=== PATIENT | male | born 1965 | race Caucasian/White ===

== ENCOUNTER 2018-04-14 10:23 | Outpatient (CLI) | payer BC ==
--- NOTE | 2018-04-17 11:36 | DEXA Report ---
Reason: OSTEOPOROSIS Procedure Date: 04/14/2018 Accession Number: [id number] / [id number] Procedure: DEX - Dexa Spine and/or Hip CPT Code: FULL RESULT: EXAM: Dexa Spine and/or Hip DATE: 04/14/2018 11:07 AM CLINICAL HISTORY: OSTEOPOROSIS. Use of methotrexate and prednisone. Male patient. TECHNIQUE: Dual energy x-ray absorptiometry (DXA) was performed on a Lemko System. Regions measured are the AP Spine, femoral neck, and if needed forearm. COMPARISON: None. In accordance with the International Society for Clinical Densitometry (ISCD) guidelines, data from previous exams may be reanalyzed using current recommendations and techniques. This is done to allow a more accurate basis for comparison with the current study. FINDINGS: The data for the lumbar spine is as follows: BMD (g/cm/cm) T-SCORE Z-SCORE REGION L1 1.044 -1.0 -0.5 L2 1.093 -1.2 -0.8 L3 1.281 0.3 0.8 L4 1.083 -1.3 -0.9 TOTAL 1.126 -0.8 -0.3 NOTE: All evaluable vertebrae are used for classification The data for the hip is as follows: BMD (g/cm/cm) T-SCORE Z-SCORE REGION Neck 0.922 -1.1 -0.3 TOTAL 0.996 -0.7 -0.2 NOTE: The femoral neck or total proximal femur, whichever is lowest, is used for classification. IMPRESSION: THE WHO CLASSIFICATION BASED ON THE INTERNATIONAL REFERENCE STANDARD IS OSTEOPENIA. THE FRACTURE RISK IS INCREASED. RECOMMENDATION: Patients with diagnosis of osteoporosis or osteopenia should have regular bone mineral density assessment. For those eligible for Medicare, routine testing is allowed once every 2 years. Testing frequency can be increased for patients who have rapidly progressing disease or for those who are receiving medical therapy to restore bone mass. COMMENT: World Health Organization (WHO) definitions for osteoporosis and osteopenia: NORMAL BMD: T-score at -1.0 or higher, fracture risk is low OSTEOPENIA BMD: T-score between -1.0 and -2.5, fracture risk is increased. OSTEOPOROSIS BMD: T-score at -2.5 or lower, fracture risk is high. National Osteoporosis Foundation recommends: 1. Obtain adequate dietary calcium (at least 1200 mg per day) and vitamin D (400-800 international units per day). 2. Participate, as appropriate, in regular weightbearing and muscle-strengthening exercise. 3. Avoid tobacco use and reduce alcohol and caffeine intake. 4. For more detailed information see the website at www.NOF.org.
== END 2018-04-14 10:24 | disposition home or self-care (01) ==
LOC: DI 10:23
PROVIDERS: ATTEND Internal Medicine Rheumatology
DX: M85.89 Other specified disorders of bone density and structure, multiple sites (principal)
CPT/HCPCS: 77080

== ENCOUNTER 2018-04-26 08:00 | Outpatient (CLI) | payer BC ==
[2018-04-26 19:14] LABS: BASOPHILS % (AUTO) 0.1 %; EOSINOPHILS % (AUTO) 0.1 %; HGB - HEMOGLOBIN 16.1 g/dL (14.0-18.0); LYMPHOCYTES # (AUTO) 1.1 10^3/uL (1.5-3.5); LYMPHOCYTES % (AUTO) 7.7 %; MEAN CORPUSCULAR HEMOGLOBIN 34.4 pg (27.0-31.0); MEAN CORPUSCULAR HGB CONC 33.6 g/dL (32.0-36.0); MEAN CORPUSCULAR VOLUME 102.3 fL (80.0-94.0); MEAN PLATELET VOLUME 8.3 fL (7.4-11.4); MONOCYTES # (AUTO) 0.3 10^3/uL (0.0-1.0); MONOCYTES % (AUTO) 2.3 %; NEUTROPHILS # (AUTO) 12.7 10^3/uL (1.5-6.6); NEUTROPHILS % (AUTO) 89.8 %; PLT - PLATELET COUNT 243 10^3/uL (130-450); RED BLOOD COUNT 4.68 10^6/uL (4.70-6.10); RED CELL DISTRIBUTION WIDTH 12.9 % (12.0-15.0); WHITE BLOOD COUNT 14.1 x10^3/uL (4.8-10.8)
[2018-04-26 19:27] LABS: ALBUMIN/GLOBULIN RATIO 1.3 (1.0-2.2); BILIRUBIN,TOTAL 0.8 mg/dL (0.2-1.0); CALCIUM 9.8 mg/dL (8.5-10.3)
== END 2018-04-26 23:59 ==
LOC: LAB.N 08:00
PROVIDERS: ATTEND Internal Medicine Rheumatology
DX: I77.6 Arteritis, unspecified (principal)
CPT/HCPCS: 36415; 80053; 85025; 86160

== ENCOUNTER 2018-09-01 08:00 | Outpatient (CLI) | payer BC ==
[2018-09-01 12:27] LABS: BILIRUBIN,URINE NEGATIVE (NEGATIVE); GLUCOSE, URINE (UA) NEGATIVE (NEGATIVE); KETONES,URINE (UA) NEGATIVE (NEGATIVE); LEUKOCYTE ESTERASE, URINE NEGATIVE (NEGATIVE); NITRITE,URINE NEGATIVE (NEGATIVE); OCCULT BLOOD,URINE NEGATIVE (NEGATIVE); PROTEIN,URINE NEGATIVE (NEGATIVE); UROBILINOGEN,URINE 0.2 (NORMAL) E.U./dL (NORMAL)
[2018-09-01 12:28] LABS: CLARITY,URINE CLEAR (CLEAR)
[2018-09-01 12:39] LABS: BASOPHILS # (AUTO) 0.1 10^3/uL (0.0-0.1); BASOPHILS % (AUTO) 0.6 %; EOSINOPHILS # (AUTO) 0.2 10^3/uL (0.0-0.7); EOSINOPHILS % (AUTO) 1.4 %; LYMPHOCYTES # (AUTO) 3.2 10^3/uL (1.5-3.5); LYMPHOCYTES % (AUTO) 26.2 %; MEAN CORPUSCULAR HEMOGLOBIN 34.1 pg (27.0-31.0); MEAN CORPUSCULAR HGB CONC 34.6 g/dL (32.0-36.0); MEAN CORPUSCULAR VOLUME 98.4 fL (80.0-94.0); MEAN PLATELET VOLUME 8.2 fL (7.4-11.4); MONOCYTES # (AUTO) 0.7 10^3/uL (0.0-1.0); MONOCYTES % (AUTO) 5.5 %; NEUTROPHILS # (AUTO) 8.1 10^3/uL (1.5-6.6); NEUTROPHILS % (AUTO) 66.3 %; PLT - PLATELET COUNT 251 10^3/uL (130-450); RED BLOOD COUNT 4.39 10^6/uL (4.70-6.10); RED CELL DISTRIBUTION WIDTH 13.2 % (12.0-15.0); WHITE BLOOD COUNT 12.2 x10^3/uL (4.8-10.8)
[2018-09-01 12:48] LABS: ALBUMIN/GLOBULIN RATIO 1.4 (1.0-2.2); ALKALINE PHOSPHATASE 42 IU/L (42-121); ALT ALANINE AMINOTRANSFERASE 13 IU/L (10-60); AST ASPARTATE AMINOTRANSFERASE 14 IU/L (10-42); BILIRUBIN,TOTAL 0.7 mg/dL (0.2-1.0); BUN - BLOOD UREA NITROGEN 9 mg/dL (6-20); CALCIUM 9.5 mg/dL (8.5-10.3); CARBON DIOXIDE - CO2 28 mmol/L (21-32); CHLORIDE 102 mmol/L (101-111); CREATININE 0.8 mg/dL (0.6-1.2); GFR - MDRD 101 (>89); GLUCOSE 93 mg/dL (70-100); SODIUM 139 mmol/L (135-145); TOTAL PROTEIN 6.8 g/dL (6.7-8.2)
[2018-09-01 12:50] LABS: BACTERIA,URINE Rare /HPF (None Seen); RBC,URINE 0-5 /HPF (0-5); SQUAMOUS EPITHELIAL CELL,UR NONE SEEN (<= Few)
[2018-09-01 13:05] LABS: CRP - C-REACTIVE PROTEIN < 1.0 mg/dL (0-1.0)
[2018-09-03 12:21] LABS: COMPLEMENT COMPONENT C3C 96 mg/dL (82-185); COMPLEMENT COMPONENT C4C 15 mg/dL (15-53)
== END 2018-09-01 23:59 | disposition home or self-care (01) ==
LOC: LAB.WCP 08:00
PROVIDERS: ATTEND Internal Medicine Rheumatology
DX: I77.6 Arteritis, unspecified (principal)
CPT/HCPCS: 36415; 80053; 81001; 85025; 85651; 86140; 86160

== ENCOUNTER 2018-12-29 08:00 | Outpatient (CLI) | payer BC ==
[2018-12-29 18:54] LABS: BASOPHILS % (AUTO) 0.3 %; EOSINOPHILS % (AUTO) 0.2 %; HGB - HEMOGLOBIN 15.1 g/dL (14.0-18.0); LYMPHOCYTES # (AUTO) 1.4 10^3/uL (1.5-3.5); LYMPHOCYTES % (AUTO) 11.4 %; MEAN CORPUSCULAR HEMOGLOBIN 32.8 pg (27.0-31.0); MEAN CORPUSCULAR HGB CONC 32.7 g/dL (32.0-36.0); MEAN CORPUSCULAR VOLUME 100.2 fL (80.0-94.0); MEAN PLATELET VOLUME 10.2 fL (7.4-11.4); MONOCYTES # (AUTO) 0.5 10^3/uL (0.0-1.0); MONOCYTES % (AUTO) 3.9 %; NEUTROPHILS # (AUTO) 10.2 10^3/uL (1.5-6.6); NEUTROPHILS % (AUTO) 83.8 %; PLT - PLATELET COUNT 251 10^3/uL (130-450); RED BLOOD COUNT 4.61 10^6/uL (4.70-6.10); RED CELL DISTRIBUTION WIDTH 12.4 % (12.0-15.0); WHITE BLOOD COUNT 12.1 x10^3/uL (4.8-10.8)
[2018-12-29 19:21] LABS: ALBUMIN/GLOBULIN RATIO 1.5 (1.0-2.2); BILIRUBIN,TOTAL 0.9 mg/dL (0.2-1.0); CALCIUM 9.6 mg/dL (8.5-10.3); TOTAL PROTEIN 6.7 g/dL (6.7-8.2)
== END 2018-12-29 23:59 | disposition home or self-care (01) ==
LOC: LAB.WCP 08:00
PROVIDERS: ATTEND Internal Medicine Rheumatology
DX: I77.6 Arteritis, unspecified (principal)
CPT/HCPCS: 36415; 80053; 85025; 85651

== ENCOUNTER 2020-07-26 18:26 | Emergency (ER) | payer BC ==
--- OUTSIDE RECORDS SUMMARY | 2020-07-26 19:03 | EXTERNAL MEDICAL SUMMARY RPT | Continuity of Care Document ---
:1965 Demographics Phone Unavailable Preferred Language Unknown Marital Status Unknown Denominational Affiliation Unknown Race Unknown Ethnic Group Unknown Author Organization [facility] Address [address] [place] [address] Phone Social History date description facility [id number]
--- NOTE | 2020-07-26 20:25 | ED Physician Documentation ---
PD HPI LOWER EXT INJURY - Stated complaint Stated Complaint: LT LEG SWELL - Chief complaint Chief Complaint: Ext Problem - History obtained from History obtained from: Patient - Additional information Additional information: 55-year-old gentleman with history of autoimmune vasculitis has been increasing his activity lately and over the last few days has noticed left calf pain and swelling. Is actually better today than it was yesterday. Reportedly was seen at the walk-in clinic yesterday and had a high D-dimer and was referred here for ultrasound. No chest pain or trouble breathing. Review of Systems Constitutional: denies: Fever, Chills Eyes: reports: Reviewed and negative Ears: reports: Reviewed and negative Nose: reports: Reviewed and negative PD PAST MEDICAL HISTORY - Allergies Allergies/Adverse Reactions: Allergies Allergy/AdvReac Type Severity Reaction Status Date / Time acetaminophen [From Vicodin] Allergy Headache Verified 07/26/20 18:49 azithromycin [From Zithromax] Allergy Nausea Verified 07/26/20 18:49 hydrocodone [From Vicodin] Allergy Headache Verified 07/26/20 18:49 PD ED PE NORMAL - Vitals Vital signs reviewed: Yes - General General: Alert and oriented X 3, No acute distress - Extremities Extremities: Other (Mild tenderness to left calf without overt swelling. Good cap refill.) - Neuro Neuro: Alert and oriented X 3, Normal speech Results - Vitals Vitals: Vital Signs - 24 hr 07/26/20 07/26/20 18:49 20:48 Temperature 36.7 C 36.7 C Heart Rate 88 86 Respiratory 16 16 Rate Blood Pressure 137/68 H 130/66 O2 Saturation 98 100 Oxygen O2 Source Room air PD MEDICAL DECISION MAKING - ED course ED course: DVT ultrasound negative for DVT. High D-dimer not surprising with autoimmune vasculitis. Departure - Departure Disposition: 01 Home, Self Care Clinical Impression: Right leg pain Condition: Good Record reviewed to determine appropriate education?: Yes Instructions: ED Strain Muscle Ext Comments: Heat and gentle stretching, may be slightly decrease activity, return for new or worsening symptoms. Discharge Date/Time: 07/26/20 20:48
[2020-07-26 20:57] VITALS: BP 130/66
--- NOTE | 2020-07-26 21:08 | Ultrasound Report ---
PROCEDURE: Duplex Ext Veins Left INDICATIONS: leg pain TECHNIQUE: Real-time imaging, as well as color and pulse Doppler interrogation, were performed of the lower extr emity deep veins from the inguinal ligament to the popliteal fossa. COMPARISON: None. FINDINGS: The deep veins are normally compressible, and free of intraluminal thrombus. Color and pu lse Doppler demonstrate normal phasic intraluminal flow. There is normal augmentation response to di stal compression maneuver. IMPRESSION: No findings of deep venous thrombosis are seen. Reviewed by: Aidan Ventura MD on 07/26/2020 8:07 PM [facility] Approved by: Aidan Ventura MD on 07/26/2020 8:07 PM [facility] Station ID: [id number]
== END 2020-07-26 20:48 | disposition home or self-care (01) ==
LOC: ED 18:26
DX: M79.662 Pain in left lower leg (principal); I77.6 Arteritis, unspecified
CPT/HCPCS: 99282; 99284

== ENCOUNTER 2021-02-06 08:00 | Outpatient (CLI) | payer BC | END 2021-02-06 23:59 | disposition home or self-care (01) | LOC: LAB.N 08:00 | PROVIDERS: ATTEND Nurse Practitioner | DX: L97.409 Non-pressure chronic ulcer of unspecified heel and midfoot with unspecified severity (principal) | CPT/HCPCS: 87070; 87205 ==

== ENCOUNTER 2021-02-25 15:33 | Outpatient (CLI) | payer BC ==
--- NOTE | 2021-02-25 18:11 | Ultrasound Report ---
PROCEDURE: Duplex Lwr Ext Arterial Bilat INDICATIONS: PERIPHERAL VASCULAR DISEASE TECHNIQUE: Color and pulse Doppler interrogation was performed of both lower extremity arterial systems, with im age documentation. COMPARISON: None. FINDINGS: Right lower extremity: Common femoral artery: 182 cm/sec, with monophasic flow. Deep femoral artery: 111 cm/sec, with monophasic flow. Proximal superficial femoral artery: 143 cm/sec, with monophasic flow. Mid superficial femoral artery: 64 cm/sec, with monophasic flow. Distal superficial femoral artery: Occluded Popliteal artery: Occluded Posterior tibial artery: Not well seen, with a flow velocity of 13 cm/sec, with monophasic flow. Anterior tibial artery/dorsalis pedis: 44 cm/sec, with monophasic flow. Mora-scale imaging description: Atherosclerotic change is seen Left lower extremity: Common femoral artery: 129 cm/sec, with triphasic flow. Deep femoral artery: 45 cm/sec, with biphasic flow. Proximal superficial femoral artery: 144 cm/sec, with biphasic flow. Mid superficial femoral artery: 97 cm/sec, with triphasic flow. Distal superficial femoral artery: 72 cm/sec, with triphasic flow. Popliteal artery: 52 cm/sec, with biphasic flow. Posterior tibial artery: 41 cm/sec, with monophasic flow. Anterior tibial artery/dorsalis pedis: 76 cm/sec, with monophasic flow. Mora-scale imaging description: Atherosclerotic changes can be seen. This study is limited by the patient's inability to cooperate with the examination by remaining still for the imaging. IMPRESSION: There is occlusion of the right distal superficial femoral artery and popliteal artery, with poorly s een distal reconstitution. High-grade stenosis is seen within the proximal right superficial femoral artery. Monophasic flow seen within the right common femoral artery, which is suggestive of inflow stenosis. Note: Concordant preliminary findings given by the public health assistant upon the completion of the examination to Kourtney Leblanc. Reviewed by: Aidan Ventura MD on 02/25/2021 5:09 PM [facility] Approved by: Aidan Ventura MD on 02/25/2021 5:09 PM [facility] Station ID: [id number]
== END 2021-02-25 15:34 | disposition home or self-care (01) ==
LOC: DI 15:33
PROVIDERS: ATTEND Nurse Practitioner
DX: I77.1 Stricture of artery (principal); I70.201 Unspecified atherosclerosis of native arteries of extremities, right leg
CPT/HCPCS: 93925

== ENCOUNTER 2021-03-06 12:19 | Outpatient (CLI) | payer BC ==
[2021-03-06] MEDS ORDERED: IOVERSOL 320 100 ML VIAL IVP ONE ×2 (12:53→15:39)
--- NOTE | 2021-03-06 16:58 | CT Report ---
PROCEDURE: ANGIO ABD RUNOFF W/WO - B/L INDICATIONS: AORTA ILIAC DISEASE CONTRAST: IV CONTRAST: Optiray 320 ml: 125 PO CONTRAST: *NO PO CONTRAST TECHNIQUE: After the administration of intravenous contrast, 2 and 5 mm sections acquired from T12 to the feet, with optional delayed image acquisition from the knees to the feet. 3-dimensional maximum intensity projection (MIP) coronal and sagittal reformats, and/or 3-dimensional volume rendering reformatting w as then performed. For radiation dose reduction, the following was used: automated exposure control , adjustment of mA and/or kV according to patient size. COMPARISON: Ultrasound examination dated 02/25/2021 FINDINGS: Image quality: Excellent. Extravascular tissues: Lung bases are clear. Heart size is normal. Liver and spleen are normal in size and enhancement. Gallbladder is within normal limits Biliary system is non dilated. Pancreas enhances normally. No adrenal nodules. Kidneys are normal in size and enhancement, without hydronep hrosis. Non opacified bowel loops demonstrate normal wall thickness and enhancement. Normal appendix . No free fluid or air. No retroperitoneal or mesenteric adenopathy. No ventral hernias. Bladder w all thickness is normal. No inguinal hernias or adenopathy. No suspicious bony lesions. No vertebr al body compression fractures. Abdominal aorta: There is aneurysmal dilatation of the infrarenal abdominal aorta measuring 32 mm wi th moderate mural thrombus. No aortic dissection. Renal and mesenteric arteries: Celiac and superior mesenteric arteries demonstrate mild origin stenos es. Inferior mesenteric artery demonstrates high-grade origin stenosis versus occlusion. Single bilat eral renal arteries are present which are patent. Right lower extremity: Mild diffuse plaque causes mild diffuse stenosis of the common iliac artery. High-grade origin stenosis of the internal iliac artery is present with associated post stenotic dila tation in the internal iliac artery. External iliac artery demonstrates mild diffuse stenosis. Common femoral artery is mildly diffusely stenotic. Profunda femoral artery is patent. Superficial femoral artery demonstrates high-grade focal stenosis proximally, with moderate diffuse stenosis within the r emainder of the proximal and mid superficial femoral artery. Superficial femoral artery occludes dist ally at the adductor canal. Above-knee popliteal artery is chronically occluded. Below knee popliteal artery is chronically occluded. There is reconstituted flow is seen within the proximal anterior tib ial artery which is patent. Tibial peroneal trunk reconstitutes close to its origin, and is moderatel y diffusely stenotic. Peroneal artery is patent to its normal terminus. Posterior tibial artery occlu jair proximally. Left lower extremity: Common iliac artery demonstrates moderate diffuse plaque causing mild diffuse stenosis. Internal iliac artery demonstrates a high-grade origin stenosis. External iliac artery demo nstrates a moderate origin stenosis, and is otherwise mildly diffusely stenotic. Common femoral arter y is mildly diffusely stenotic with a high bifurcation. Profunda femoral artery is patent. Superficia l femoral artery is mildly diffusely stenotic. Above and below knee popliteal artery is mildly diffus juan manuel stenotic. Anterior tibial artery demonstrate mild multifocal stenoses proximally, and is otherwis e patent. Tibial peroneal trunk is patent. Peroneal and posterior tibial arteries are patent. IMPRESSION: 1. Infrarenal abdominal aortic aneurysm. 2. Moderate left external iliac artery origin stenosis. Otherwise no significant inflow stenoses bila terally. 3. Right-sided outflow occlusion. No significant left-sided outflow stenosis. 4. Reconstituted flow within the right-sided runoff vessel as above. Three-vessel left lower extremit y runoff. 5. Inferior mesenteric artery occlusion versus high-grade stenosis. Reviewed by: Opal Farmer MD on 03/06/2021 4:57 PM PST Approved by: Opal Farmer MD on 03/06/2021 4:57 PM PST Station ID: [id number]
== END 2021-03-06 12:20 | disposition home or self-care (01) ==
LOC: DI 12:19
PROVIDERS: ATTEND Physician Assistant Medical
DX: I71.4 Abdominal aortic aneurysm, without rupture (principal); I70.8 Atherosclerosis of other arteries
CPT/HCPCS: 75635; Q9967

== ENCOUNTER 2021-09-14 17:04 | Outpatient (CLI) | payer BC ==
--- NOTE | 2021-09-15 11:15 | XRAY Report ---
PROCEDURE: Cervical Spine 2 View INDICATIONS: CERVICALGIA TECHNIQUE: 4 view(s) of the cervical spine were acquired. COMPARISON: None. FINDINGS: Bones: No fractures or dislocations to the C7 level. The lateral masses of C1 appear intact on the odontoid view. No suspicious bony lesions. Anterior fusion hardware at C4-C7. Disc space narrowing and endplate osteophyte formation at C3-C4 is present. Soft tissues: No prevertebral soft tissue swelling. IMPRESSION: 1. Postsurgical sequelae. 2. Upper cervical spine degenerative disc disease. Reviewed by: Opal Farmer MD on 09/15/2021 11:13 AM PDT Approved by: Opal Farmer MD on 09/15/2021 11:13 AM PDT Station ID: [id number]
== END 2021-09-14 17:05 | disposition home or self-care (01) ==
LOC: DI.N 17:04
PROVIDERS: ATTEND Physician Assistant
DX: M50.31 Other cervical disc degeneration, high cervical region (principal); Z98.1 Arthrodesis status

== ENCOUNTER 2022-12-09 08:43 | Outpatient (CLI) | payer BC ==
--- NOTE | 2022-12-09 11:55 | Ultrasound Report ---
PROCEDURE: Duplex Lwr Ext Arterial RT INDICATIONS: PVD TECHNIQUE: Color and pulse Doppler interrogation was performed of the right lower extremity arterial system, wit h image documentation. COMPARISON: None FINDINGS: Common femoral artery: 136 cm/sec, with biphasic flow. Deep femoral artery: 105 cm/sec, with triphasic flow. Proximal superficial femoral artery: 59 cm/sec, with biphasic flow. Mid superficial femoral artery: 50 cm/sec, with biphasic flow. Distal superficial femoral artery: 47 cm/sec, with biphasic flow. Popliteal artery: 28 cm/sec, with triphasic flow. Posterior tibial artery: 15 cm/sec, with monophasic flow. Anterior tibial artery/dorsalis pedis: 65 cm/sec, with right phasic flow. Mora-scale imaging description: Moderate diffuse IMPRESSION: 1. No significant outflow stenosis. 2. Findings suggestive of a hemodynamically significant stenosis within the posterior tibial artery. Reviewed by: Opal Farmer MD on 12/09/2022 11:53 AM PDT Approved by: Opal Farmer MD on 12/09/2022 11:53 AM PDT Station ID: [id number]
--- NOTE | 2022-12-09 11:56 | Ultrasound Report ---
PROCEDURE: Ankle Brachial Index INDICATIONS: PVD TECHNIQUE: Ankle-brachial indices were obtained bilaterally and recorded. COMPARISONS: None. FINDINGS: Right ankle brachial index (SHAYY): 0.9 Left ankle brachial index (SHAYY): 0.94 IMPRESSION: No evidence of arterial insufficiency to the bilateral lower extremities. Reviewed by: Opal Farmer MD on 12/09/2022 11:54 AM PDT Approved by: Opal Farmer MD on 12/09/2022 11:54 AM PDT Station ID: [id number]
== END 2022-12-09 08:44 | disposition home or self-care (01) ==
LOC: DI 08:43
PROVIDERS: ATTEND Surgery
DX: I73.9 Peripheral vascular disease, unspecified (principal)
CPT/HCPCS: 93922

== ENCOUNTER 2023-12-09 13:32 | Outpatient (CLI) | payer BC ==
--- NOTE | 2023-12-09 17:13 | XRAY Report ---
PROCEDURE: Cervical Spine 2-3V INDICATIONS: OTHER CERVICAL DISC DEGENERATION TECHNIQUE: 4 view(s) of the cervical spine were acquired. COMPARISON: C-spine radiograph on September 14, 2021. FINDINGS: Bones: No fractures or dislocations to the C7 level. Anterior fusion hardware from C4 to C7 is inta ct with no perihardware lucency to suggest hardware loosening. Degenerative changes of the upper cerv ical spine with osteophytosis, disc height loss and facet arthropathy, notably at C3-C4, similar to p rior. The lateral masses of C1 appear intact on the odontoid view. No suspicious bony lesions. Soft tissues: No prevertebral soft tissue swelling. IMPRESSION: 1.Anterior cervical fusion hardware from C4 to C7 is intact without complication. Stable alignment wi th straightening of the normal cervical lordosis. Stable alignment. 2.Marked degenerative changes at C3-C4, similar to prior. Reviewed by: Ellen Stack MD on 12/09/2023 4:11 PM [facility] Approved by: Ellen Stack MD on 12/09/2023 4:11 PM [facility] Station ID: [id number]
== END 2023-12-09 13:33 | disposition home or self-care (01) ==
LOC: DI.N 13:32
PROVIDERS: ATTEND Nurse Practitioner Family
DX: M47.812 Spondylosis without myelopathy or radiculopathy, cervical region (principal); Z98.1 Arthrodesis status